=== PATIENT | male | born 1980 | race Caucasian/White ===

== ENCOUNTER 2016-04-22 16:26 | Emergency (ER) | payer SELFPAY ==
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
[~2016-04-22 16:26] MED LIST: BUSPAR30 MG PO; DIFLUNISAL500 MG PO; FLEXERIL10 MG PO; GABAPENTIN800 MG PO; IBUPROFEN M200 M1 PO; IMITREX25 MG PO; KEFLEX PO; KEFLEX500 M1 PO; KLONOPIN PO; KLONOPIN1 MG PO; LISINOPRIL PO; LORTAB 10/500 T1 TAB PO; NEURONTIN; NEURONTIN600 MG PO; NORCO 10/3251 TAB PO; NORFLEX100 M1 PO; PHENERGAN PR; PHENERGAN25 M1 PO; PREDNISONE PO; PRINIVIL20 M1 PO; PROPRANOLOL HCL10 MG PO; REGLAN PO; REQUIP0.25 MG PO; SEROQUEL PO; SILVADENE TOP; TRAZODONE PO; TYLENOL #3 PO; VOLTAREN50 MG PO; VOLTAREN75 MG; VOLTAREN75 MG PO; ZOLOFT PO
[2016-06-11] MEDS ORDERED: ZANTAC150 M1 (15:23)
[2016-06-11] MEDS ORDERED: ADDERALL (15:23)
== END 2016-04-22 18:07 | disposition home or self-care (01) ==
LOC: SED 16:26
DX: S16.1XXA Strain of muscle, fascia and tendon at neck level, initial encounter (principal); S00.81XA Abrasion of other part of head, initial encounter; S09.90XA Unspecified injury of head, initial encounter; I10 Essential (primary) hypertension; F17.200 Nicotine dependence, unspecified, uncomplicated; Z88.5 Allergy status to narcotic agent; Z79.899 Other long term (current) drug therapy; V49.40XA Driver injured in collision with unspecified motor vehicles in traffic accident, initial encounter; Y92.410 Unspecified street and highway as the place of occurrence of the external cause
CPT/HCPCS: 70450; 72040; 99284

== ENCOUNTER 2016-06-11 15:30 | Emergency (ER) | payer OTHER ==
--- NOTE | ~2016-06-11 | EKG ---
PATIENT: STEVE VARGAS UNIT #: [id number] Ventricular Rate: 98 BPM Atrial Rate: 98 BPM P-R Interval: 184 ms QRS Duration: 104 ms Q-T Interval: 386 ms QTC Calculation(Bezet): 492 ms P [place]: 62 degrees Calculated R [place]: 73 degrees Calculated T [place]: 53 degrees Diagnosis Line: Normal sinus rhythm Diagnosis Line: Prolonged QT Diagnosis Line: Abnormal ECG Diagnosis Line: No previous ECGs available Diagnosis Line: Confirmed by CASS FULLER MD ([id number]) on Diagnosis Line: 06/13/2016 9:21:41 AM INTERPRETING MD: JONNY MORLEY
[~2016-06-11 15:30] MED LIST changes: +ADDERALL; +ZANTAC150 M1
[2016-06-11 15:48] LABS: BASOPHIL% 0.9 % (0-2.5); EOSINOPHIL% 0.1 % (0.0-7.0); HEMATOCRIT 43.8 % (38.0-50.0); HEMOGLOBIN 14.8 gm/dL (13.0-16.0); LYMPHOCYTE# 1.9 X10e3 (1.0-3.5); LYMPHOCYTE% 45.7 % (17.0-45.0); MEAN CELL VOLUME 87.5 FL (83-96); MEAN CORPUSCULAR HEMOGLOBIN 29.5 PG (28-34); MEAN CORPUSCULAR HGB CONC 33.7 g/dL (30-36); MEAN PLATELET VOLUME 7.6 FL (6.5-11.5); MONOCYTE# 0.4 X10e3 (0-1.0); MONOCYTE% 8.6 % (3.0-12.0); NEUTROPHIL# 1.9 X10e3 (1.5-7.1); NEUTROPHIL% 44.7 % (40-75); PLATELET COUNT 313 X10e3 (140-420); RED BLOOD COUNT 5.01 X10e (3.90-5.60); RED CELL DISTRIBUTION WIDTH 13.8 % (11.0-15.5); WHITE BLOOD COUNT 4.2 X10e3 (4.0-10.5)
[2016-06-11 15:55] LABS: DIFF IND NO
[2016-06-11 16:08] LABS: BLOOD UREA NITROGEN 5 mg/dL (9-23); CALCIUM SERUM 9.2 mg/dL (8.4-10.2); CARBON DIOXIDE 27 mmol/L (22-31); CHLORIDE 101 mmol/L (100-111); GLOM FILT RATE Estimated 97.8 mL/min (>60); GLUCOSE FASTING 93 mg/dL (70-110); POTASSIUM 3.6 mmol/L (3.5-5.1); SODIUM 139 mmol/L (135-145)
[2016-06-11 16:11] LABS: ALCOHOL BLOOD <5 mg/dL (0)
[2016-06-11 16:39] LABS: URINE SOURCE CLEAN CATCH
[2016-06-11 16:42] LABS: URINE APPEARANCE CLEAR; URINE BILIRUBIN NEG (NEG); URINE BLOOD NEG (NEG); URINE COLOR YELLOW; URINE GLUCOSE NEG (NORM); URINE KETONE TRACE (NEG); URINE LEUKOCYTE ESTERASE NEG (NEG); URINE NITRATE NEG (NEG); URINE PH 5.5 (5-8); URINE PROTEIN 1+ (NEG); URINE SPECIFIC GRAVITY 1.025 (1.003-1.035); URINE UROBILINOGEN 0.2 MG/DL (NORM)
[2016-06-11 16:44] LABS: MICRO INDICATED? YES
[2016-06-11 16:52] LABS: AMPHETAMINE POS (NEG); BARBITURATES POS (NEG); BENZODIAZEPINES POS (NEG); COCAINE NEG (NEG); MARIJUANA NEG (NEG); OPIATES NEG (NEG); TRICYCLIC ANTIDEPRESSANTS NEG (NEG); U METHADONE NEG (NEG)
[2016-06-11 17:02] LABS: CULTURE INDICATED? NO; URINE BACTERIA NEG (NEG); URINE RBC 0-2 /[HPF] (0-2); URINE WBC 0-2 /[HPF] (0-5)
== END 2016-06-11 17:35 | disposition home or self-care (01) ==
LOC: SED 15:30
PROVIDERS: Student in an Organized Health Care Education/Training Program
DX: R55 Syncope and collapse (principal); F41.9 Anxiety disorder, unspecified; K21.9 Gastro-esophageal reflux disease without esophagitis; F17.200 Nicotine dependence, unspecified, uncomplicated
CPT/HCPCS: 36415; 80048; 80307; 81003; 85025; 93005; 96361; 96374; 99284; G0480; J2060